=== PATIENT | female | born 1960 | race Caucasian/White ===

== ENCOUNTER 2025-05-22 12:43 | Outpatient (CLI) | payer OTHER, SELFPAY ==
--- OUTSIDE RECORDS SUMMARY | 2025-05-22 12:55 | XMS_ITS | Encounter Summary ---
Author Organization [facility] Address [facility] [place] [address] Care Team Providers Care Automotive Warranty Administrator Name Role Phone Bahman Bowling MD Primary Care Provider [phone] Dayday Evans MD Unavailable [phone] Encounter Details Date Type Department Care Team (Late st Contact Info) Description 03/29/2019 Abstract SFL CONVERSION [address] [place], [place] [id number] , Generic Conversion, Social History Tobacco Use Types Packs/Day Years Used Date Smoking Tobacco: Every Day Cigarettes Smokeless Tobacco: Never Alcohol Use Standard Drinks/Week Comments No 0 (1 standard drink = 0.6 oz pur e alcohol) Comments No Sex and Gender Information Value Date Recorded Sex Assigned at Not on file 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
--- OUTSIDE RECORDS SUMMARY | 2025-05-22 12:55 | XMS_ITS | Clinical Summary ---
Author Organization [facility] Address [address] [place] [address] Care Team Providers Care Traffic Rate Analyst Name Role Phone Bahman Bowling MD Primary Care Provider [phone] Dayday Evans MD Unavailable [phone] Allergies Active Allergy Reactions Criticality Noted Date Comments Codeine Nausea and Vomiting 06/04/2018 Lisinopril Rash,Cough Low 06/04/2018 Losartan Rash,Cough Low 06/04/2018 Medications * This document contains information received from the source organization and may not represent a complete record from that organization. omeprazole 40 MG capsuleIndications:A KELY REFLUX Take 40 mg by mouth daily. Indications : ACID REFLUX Active levothyroxine 112 MCG tablet Take 1 tablet by mouth daily. Active levothyroxine 50 MCG tablet Take 1 tablet by mouth daily. Active levothyroxine 175 MCG tablet Active cyclobenzaprine 5 MG tablet Take 1-2 tablets by mouth 3 (three) times daily as needed. 1 Active buPROPion XL 300 MG 24 hr tablet Take 1 tablet by mouth daily. 1 Active FLUoxetine 40 MG capsule Take 1 capsule by mouth daily. 1 Active hydroCHLOROthiazide 25 MG tablet Take 25 mg by mouth daily. 1 Active Pramipexole Dihydrochloride 0.75 MG Tab Take 0.75 mg by mouth nightly at bedtime. Pt states only takes one tab at bedtime 1 Active levothyroxine 150 MCG tablet Take 150 mcg by mouth every morning. Active Active Problems Problem Noted Date Diagnosed Date Essential (primary) hypertension 06/09/2021 Diastolic dysfunction 06/09/2021 Class 3 severe obesity due t o excess calories without serious comorbidity with body mass index (BMI) of 40.0 to 44.9 in adult 06/09/2021 Shortness of breath 06/09/2021 Wound drainage 06/29/2018 S/P lumbar fusion 06/12/2018 Family History Medical History Relation Comments Heart Disease Father Hypertension Father Open Heart Father Cancer Mother ESOPHAGEAL Stroke Mother Relation Status Comments Father (Age 76) Maternal Grandfather Maternal Grandmother Mother (Age 78) Paternal Grandfather Other Paternal Grandmother Social History Tobacco Use Types Packs/Day Years Used Date Smoking Tobacco: Former Cigarettes Q uit: 06/2019 Smokeless Tobacco: Never Tobacco Cessation:Ready to Q uit: No; Counseling Given: Yes Alcohol Use Standard Drinks/Week Comments No 0 (1 standard drink = 0.6 oz pur e alcohol) Comments No Sex and Gender Information Value Date Recorded Sex Assigned at Not on file 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 Gender Identity Not on file Sexual Orientation Not on file Occupation Industry Job Start Date Job End Date Not on file Not on file Not on file Not on file Last Filed Vital Signs Vital Sign Reading Time Taken Comments Blood Pressure 170/90 06/08/2021 11:26 AM CDT Pulse 80 06/08/2021 11:24 AM CDT Temperature 36.7 C (98.1 F) 07/01/2018 7:42 AM CDT Respiratory Rate 16 06/08/2021 11:24 AM CDT Oxygen Saturation 98% 06/08/2021 11:24 AM CDT Inhaled Oxygen Concentration - - Weight 116.6 kg (257 lb) 06/08/2021 11:24 AM CDT Height 162.6 cm (5' 4) 06/08/2021 11:24 AM CDT Body Mass Index 44.11 06/08/2021 11:24 AM CDT Plan of Treatment Health Maintenance Due Date Last Done Comments Colorectal Cancer Screening Colonoscopy (10 Years) 1962 Annual Physical 1965 Hepatitis C 02/06/1980 DTaP, Tdap and Td Vaccines ( 1 - Tdap) 1981 Pneumococcal Vaccine: 50+ Ye ars (1 of 1 - PCV) 02/06/2012 Zoster Vaccines (1 of 2) 02/06/2012 COVID-19 Vaccine (2 - 2023-2 5 season) 2024 04/21/2021 Mammogram Screening 2026 02/06/2024 RSV Immunization or 60+ Years (1 - 1-dose 75+ series) 2037 Meningococcal B Vaccine Aged Out No l onger eligible based on patient's age to complete this topic Meningococcal Vaccine Aged Out No leon kwan eligible based on patient's age to complete this topic RSV Immunizations Under 20 Months Aged Out No longer eligible based on patient's age to complete this topic Medical Devices Implanted Type Area Turkey Cleaner Device Identifier Shelf Expiration Date Model / Serial / Lot Applicator Evicel 5ml - [id number] Implanted:Qty: 1 on 06/11/2018 by Last Conklin DO at [facility] Sealant Left: Spine Lumbar [employer] - A [employer] 08/21/2019 [id number] / [id number] / [id number] Spacer Implanted:Qty: 1 on 06/11/2018 by Last Conklin DO at [facility] Spacer Left: Spine Lumbar 07/11/2025 [id number] / N/A / [id number] Spacer Implanted:Qty: 1 on 06/11/2018 by Last Conklin DO at [facility] Spacer Left: Spine Lumbar MEDTRONIC INC 07/11/2025 [id number] / / [id number] Spacer Implanted:Qty: 1 on 06/11/2018 by Last Conklin DO at [facility] Spacer Left: Spine Lumbar [employer] INC 07/19/2025 [id number] / N/A / [id number] Tissue Surgiflo 8ml - [id number] Implanted:Qty: 3 on 06/11/2018 by Last Conklin DO at [facility] Left: Spine Lumbar [employer] - A [email or web address] 07/21/2019 [id number] / / [id number] Description:Surgiflo Hemosta tic Matrix Ethicon Christopher Medtronic 100mm - [id number] Implanted:Qty: 1 on 06/11/2018 by Last Conklin DO at [facility] Left: Spine Lumbar [employer] SP[employer] [id number] / / [id number] Screw Set End Cap Medtronic - [id number] Implanted:Qty: 8 on 06/11/2018 by Last Conklin DO at [facility] Left: Spine Lumbar [employer] [id number] / / [id number] Screw Multiaxial Medtronic 5.5 X 45mm - [id number] Implanted:Qty: 1 on 06/11/2018 by Last Conklin DO at [facility] Left: Spine Lumbar [employer] [id number] / / [id number] Screw Multiaxial Medtronic 6.5 X 35mm - [id number] Implanted:Qty: 1 on 06/11/2018 by Last Conklin DO at [facility] Left: Spine Lumbar [employer] [id number] / / [id number] Screw Multiaxial Medtronic 6.5 X 45mm - [id number] Implanted:Qty: 5 on 06/11/2018 by Last Conklin DO at [facility] Left: Spine Lumbar [employer] [id number] / / [id number] Screw Multiaxial Medtronic 6.5 X 40mm - [id number] Implanted:Qty: 1 on 06/11/2018 by Last Conklin DO at [facility] Left: Spine Lumbar [employer] [id number] / / [id number] Graft Bone Christine Putty Dbm 5ml - [id number] Implanted:Qty: 1 on 06/11/2018 by Last Conklin DO at [facility] Left: Spine Lumbar [employer] 02/18/2021 [id number] / [id number] / Graft Bone Allosource Cancellous Crushed Freeze Dried 30ml - [id number] Implanted:Qty: 1 on 06/11/2018 by Last Conklin DO at [facility] Left: Spine Lumbar [employer] 11/22/2022 [id number] / [id number] / [id number] Tissue Duragen 3 X 3 - [id number] Implanted:Qty: 1 on 06/11/2018 by Last Conklin DO at [facility] Left: Spine Lumbar [employer] 01/19/2021 [id number] / [id number] / [id number] Christopher Medtronic 110mm - [id number] Implanted:Qty: 1 on 06/11/2018 by Last Conklin DO at [facility] Left: Spine Lumbar [employer] [id number] / / [id number] Procedures Procedure Name Priority Date/Time Associated Diagnosis Comments MG SCREENING W DEE DEE ALLEGRA DIGI Routine 02/06/2024 3:07 PM CDT Screening mammogram, encounter for from Last 3 Months or Most Recently Relevant to Health Maintenance Results * MG SCREENING W DEE DEE ALLEGRA DIGI (02/06/2024 3:07 PM CDT) Anatomical Region Laterality Modality Breast Bilateral Mammography 02/06/2024 5:47 PM CDT Impressions 02/06/2024 5:53 PM CDT ===== IMPRESSION: ===== 1. Stable mammographic appearance with no new findings to suggest malignancy in either breast. Assessment: ACR BI-RADS 2 - BENIGN FINDING(S) Recommendation: 1:Routine Screening Bilateral Comments: Ordered By: VALENTINA CONN Interpreted By: Aleksandar Ibanez, 02/06/2024 5:47 PM Narrative 02/06/2024 5:53 PM CDT EXAMINATION: Digital bilateral screening mammogram with 3-D tomosynthesis EXAM DATE/TIME: 02/06/2024 3:07 PM REASON FOR EXAM: SCREENING MAMMOGRAM, ENCOUNTER FOR Maternal aunt with breast carcinoma. COMPARISON: 11/19/2017.. 12/12/2018 Technique: Digital screening mammography of both breasts was performed in addition to 3-D Tomosynthesis technique. This study was read with the assistance of a computer-aided detection system. Tissue density: There are scattered areas of fibroglandular density. Findings: Benign calcifications. Similar retroareolar nodularity.. Benign- appearing lymph node within the medial and superior left breast, in its mid aspect.. There is no new focal asymmetry, dominant mass lesion, area of skin thickening, or cluster of suspicious appearing calcifications in either breast to suggest malignancy. us Valentina Conn PA-C MAMMO Final Resul t from Last 3 Months or Most Recently Relevant to Health Maintenance Insurance [facility] Advance Directives * Full Code (Latest Code Status on File) Date Activated Date Inactivated Comments 06/12/2018 12:52 AM 06/17/2018 7:35 PM Care Teams Traffic Rate Analyst Relationship Specialty [place] [address] [place] [address] [place] [address] PCP - General FAMILY PRACTICE 04/22/18 Dayday Evans MD [address] [facility] [address] [place] [address] Canvas Internal Affairs Commander INTERVENTIONAL CARDIOLOGY 05/19/21
--- OUTSIDE RECORDS SUMMARY | 2025-05-22 12:55 | XMS_ITS | Encounter Summary ---
Author Organization [facility] Address [facility] [place] [address] Care Team Providers Care Date Puller Name Role Phone Bahman Bowling MD Primary Care Provider [phone] Dayday Evans MD Unavailable [phone] Encounter Details Date Type Department Care Team (Late st Contact Info) Description 09/20/2018 Abstract [facility] [address] [address] Last Conklin DO Social History Tobacco Use Types Packs/Day Years Used Date Smoking Tobacco: Every Day Cigarettes Smokeless Tobacco: Never Alcohol Use Standard Drinks/Week Comments No 0 (1 standard drink = 0.6 oz pur e alcohol) Comments No Sex and Gender Information Value Date Recorded Sex Assigned at Not on file 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 Gender Identity Not on file Sexual Orientation Not on file documented as of this encounter Plan of Treatment Not on file documented as of this encounter Visit Diagnoses Not on filedocumented in this encounter Care Teams Date Puller Relationship Specialty Start Date End Date Bahman Bowling MD [address] [facility] [place] [address] PCP - General FAMILY PRACTICE 04/22/18 Dayday Evans MD [address] [facility] [address] [place] [address] [place] Office Machine Punch Operator INTERVENTIONAL CARDIOLOGY 05/19/21 documented as of this encounter
[2025-05-22 13:44] LABS: Thyroid Stimulating Hormone Reflex 89.100 uIU/mL (0.465-4.68)
[2025-05-22 14:23] LABS: Free T4 Free Thyroxine Reflex 0.08 ng/dL (0.78-2.19)
== END 2025-05-22 12:44 | disposition home or self-care (01) ==
PROVIDERS: PCP Nurse Practitioner Family; Visit Provider Nurse Practitioner Family
DX: E03.9 Hypothyroidism, unspecified (principal)
CPT/HCPCS: 36415; 84439; 84443

== ENCOUNTER 2025-05-25 13:08 | Outpatient (CLI) | payer OTHER, SELFPAY ==
--- NOTE | ~2025-05-25 | US_ITS ---
Thyroid ultrasound. Clinical History: Dysphagia Findings: Real-time sonography of the thyroid gland was performed. The right lobe measures 4.0 x 1.4 x 1.6 cm. The left lobe measures 2.5 x 1.4 x 1.1 cm. The isthmus is 3 mm in AP diameter. Thyroid parenchyma is heterogeneous, but no discrete thyroid nodule identified. Impression: Heterogeneous thyroid parenchyma without definite, discrete nodule.. Reviewed, dictated and finalized at location . Impression: Heterogeneous thyroid parenchyma without definite, discrete nodule..
--- OUTSIDE RECORDS SUMMARY | 2025-05-25 13:20 | XMS_ITS | Clinical Summary ---
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 Gender Identity Not on file Sexual Orientation [...] this topic Medical Devices Implanted Type Area Wool And Pelt Grader Device Identifier Shelf Expiration Date Model / Serial / Lot Applicator Evicel 5ml - [id number] Implanted:Qty: 1 on 06/11/2018 by Last Conklin DO at [facility] Sealant Left: Spine Lumbar [employer] - A [employer] 08/21/2019 [id number] / [id number] / [id number] Spacer Implanted:Qty: 1 on 06/11/2018 by Last Conklin DO at [facility] Spacer Left: Spine Lumbar 07/11/2025 [id number] / N/A / [id number] Spacer Implanted:Qty: 1 on 06/11/2018 by Last Conklin DO at [facility] Spacer Left: Spine Lumbar [employer] INC 07/11/2025 [id number] / / [id number] Spacer Implanted:Qty: 1 on 06/11/2018 by Last Conklin DO at [facility] Spacer Left: Spine Lumbar [employer] INC 07/19/2025 [id number] / N/A / [id number] Tissue Surgiflo 8ml - [id number] Implanted:Qty: 3 on 06/11/2018 by Last Conklin DO at [facility] Left: Spine Lumbar [employer] - A [employer] 07/21/2019 [id number] / / [id number] Description:Surgiflo Hemosta tic Matrix Ethicon Christopher Medtronic 100mm - [id number] Implanted:Qty: 1 on 06/11/2018 by Last Conklin DO at [facility] Left: Spine Lumbar [employer] SP[employer] [id number] / / [id number] Screw Set End Cap Medtronic - [id number] Implanted:Qty: 8 on 06/11/2018 by Last Conklin DO at [facility] Left: Spine Lumbar [employer] [id number] / / [id number] Screw Multiaxial Medtronic 5.5 X 45mm - [id number] Implanted:Qty: 1 on 06/11/2018 by Last Conklin DO at [facility] Left: Spine Lumbar [employer] SP[employer] [id number] / / [id number] Screw Multiaxial Medtronic 6.5 X 35mm - [id number] Implanted:Qty: 1 on 06/11/2018 by Last Conklin DO at [facility] Left: Spine Lumbar [employer] [id number] / / [id number] Screw Multiaxial Medtronic 6.5 X 45mm - [id number] Implanted:Qty: 5 on 06/11/2018 by Last Conklin DO at [facility] Left: Spine Lumbar [employer] [id number] / / [id number] Screw Multiaxial Medtronic 6.5 X 40mm - [id number] Implanted:Qty: 1 on 06/11/2018 by Last Conklin DO at [facility] Left: Spine Lumbar [employer] [id number] / / [id number] Graft Bone Christine Putty Dbm 5ml - [id number] Implanted:Qty: 1 on 06/11/2018 by Last Conklin DO at [facility] Left: Spine Lumbar [employer] 02/18/2021 [id number] / [id number] / Graft Bone Allosource Cancellous Crushed Freeze Dried 30ml - [id number] Implanted:Qty: 1 on 06/11/2018 by Last Conklin DO at [facility] Left: Spine Lumbar [employer]OURCE 11/22/2022 [id number] / [id number] / [id number] Tissue Duragen 3 X 3 - [id number] Implanted:Qty: 1 on 06/11/2018 by Last Conklin DO at [facility] Left: Spine Lumbar [employer] 01/19/2021 DP-1033 / [id number] / [id number] Christopher Medtronic 110mm - [id number] Implanted:Qty: 1 on 06/11/2018 by Last Conklin DO at [facility] Left: Spine Lumbar [employer] SP[employer] [id number] / / [id number] Procedures Procedure Name Priority Date/Time Associated Diagnosis [...] Most Recently Relevant to Health Maintenance Insurance [facility] Advance Directives * Full Code (Latest Code Status on File) Date Activated Date Inactivated Comments 06/12/2018 12:52 AM 06/17/2018 7:35 PM Care Teams French Tutor Relationship Specialty [place] [address] [place] [address] [place] [address] PCP - General FAMILY PRACTICE 04/22/18 Dayday Evans MD [address] [facility] [address] [place] [address] [employer] Vacuum Metalizer Operator INTERVENTIONAL CARDIOLOGY 05/19/21
--- OUTSIDE RECORDS SUMMARY | 2025-05-25 13:20 | XMS_ITS | Encounter Summary ---
Author Organization [facility] Address [facility] [place] [address] Care Team Providers Care Milk Drier Name Role Phone Bahman Bowling MD Primary Care Provider [phone] Dayday Evans MD Unavailable [phone] Encounter Details Date Type Department Care Team (Late st Contact Info) Description 03/29/2019 Abstract SFL CONVERSION [address], [place] [id number] , Generic Conversion, Social History Tobacco Use Types Packs/Day Years Used Date Smoking Tobacco: Every Day Cigarettes Smokeless Tobacco: Never Alcohol Use Standard Drinks/Week Comments No 0 (1 standard drink = 0.6 oz pur e alcohol) Comments No Sex and Gender Information Value Date Recorded Sex Assigned at Not on file 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 [address] [place] [address] [place] Math Professor INTERVENTIONAL CARDIOLOGY 05/19/21 documented as of this encounter
--- OUTSIDE RECORDS SUMMARY | 2025-05-25 13:20 | XMS_ITS | Encounter Summary ---
Author Organization [facility] Address [facility] [place] [address] Care Team Providers Care Senior Materials Scientist Name Role Phone Bahman Bowling MD Primary Care Provider [phone] Dayday Evans MD Unavailable [phone] Encounter Details Date Type Department Care Team (Late st Contact Info) Description 09/20/2018 Abstract [facility] [address] [address] Last Conklin DO Social History Tobacco Use Types Packs/Day Years Used Date Smoking Tobacco: Every Day Cigarettes Smokeless Tobacco: Never Alcohol Use Standard Drinks/Week Comments No 0 (1 standard drink = 0.6 oz pur e alcohol) Comments No Sex and Gender Information Value Date Recorded Sex Assigned at Not on file 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 [place] [address] PCP - General FAMILY PRACTICE 04/22/18 Dayday Evans MD [address] , [facility] [address] [place] [address] [place] Support Agent INTERVENTIONAL CARDIOLOGY 05/19/21 documented as of this encounter
[2025-05-25 13:34] LABS: Hematocrit 42.9 % (35.0-49.0); Hemoglobin 14.2 g/dL (12.0-15.0); Immature Granulocyte Percent A 0.5 % (0.0-0.0); Lymphocytes Absolute Auto 2.68 K/mm3 (1.10-4.50); Mean Corpuscular HGB Conc 33.1 g/dL (32-36); Mean Corpuscular Hemoglobin 29.5 pg (27.0-31.0); Mean Corpuscular Volume 89.0 fL (78.0-102.0); Nucleated Red Blood Cells Absolute Auto 0.00 K/mm3 (0.00-0.00); Nucleated Red Blood Cells Perc 0.0 % (0-0.0); Platelet Count Result 250 K/mm3 (150-420); Red Blood Count 4.82 M/mm3 (4.20-5.40); White Blood Count 10.1 K/mm3 (4.8-10.8)
[2025-05-25 14:20] LABS: Hemoglobin A1C 7.6 % (<5.7)
[2025-05-25 14:29] LABS: Alanine Aminotransferase 46 U/L (6-35); Albumin Level 4.6 g/dL (3.5-5.1); Alkaline Phosphatase 76 U/L (38-126); Anion Gap 7 mmol/L (4-12); Aspartate Amino Transferase 33 U/L (14-36); Bilirubin,Total 0.7 mg/dL (0.2-1.3); Blood Urea Nitrogen 14 mg/dL (7-17); Calcium 9.6 mg/dL (8.4-10.2); Carbon Dioxide 27 mmol/L (22-30); Chloride 101 mmol/L (98-107); Cholesterol 285 mg/dL (0-200); Estimated Glomerular Filt Rate 57; Glucose 134 mg/dL (65-110); HDL Direct 57 mg/dL; Iron 139 ug/dL (37-170); Osmolality Calculated 282 mOsm/kg (285-295); Potassium 3.9 mmol/L (3.4-5.0); Sodium 135 mmol/L (137-145); Total Protein 6.9 g/dL (6.3-8.2); Triglycerides 190 mg/dL (<150)
[2025-05-25 14:38] LABS: Percent Iron Saturation 33 % (20-50)
[2025-05-25 15:04] LABS: Ferritin 69.60 ng/mL (11.1-264)
[2025-05-28 12:29] LABS: Creatine Kinase 251 U/L (30-135)
[2025-05-28 16:03] LABS: NT Pro B Type Natriuretic Pept 204 pg/mL (19.9-100)
== END 2025-05-25 13:09 | disposition home or self-care (01) ==
LOC: CHSIMG 13:13
PROVIDERS: PCP Nurse Practitioner Family; Visit Provider Nurse Practitioner Family
DX: Z00.00 Encounter for general adult medical examination without abnormal findings (principal); R79.89 Other specified abnormal findings of blood chemistry; R13.10 Dysphagia, unspecified; R49.0 Dysphonia; E03.9 Hypothyroidism, unspecified; E78.5 Hyperlipidemia, unspecified; R74.8 Abnormal levels of other serum enzymes
CPT/HCPCS: 36415; 76536; 80053; 80061; 82306; 82550; 82553; 82728; 83036; 83540; 83550; 83880; 85025

== ENCOUNTER 2025-05-29 09:49 | Outpatient (CLI) | payer OTHER, SELFPAY ==
--- OUTSIDE RECORDS SUMMARY | 2025-05-29 09:55 | XMS_ITS | Encounter Summary ---
Author Organization [facility] Address [facility] [place] [address] Care Team Providers Care Engineering Equipment Operator Name Role Phone Bahman Bowling MD Primary Care Provider [phone] Dayday Evans MD Unavailable [phone] Encounter Details Date Type Department Care Team (Late st Contact Info) Description 03/29/2019 Abstract SFL CONVERSION [address], [place] [id number] , Generic Conversion, Social History Tobacco Use Types Packs/Day Years Used Date Smoking Tobacco: Every Day Cigarettes Smokeless Tobacco: Never Alcohol Use Standard Drinks/Week Comments No 0 (1 standard drink = 0.6 oz pur e alcohol) Comments No Sex and Gender Information Value Date Recorded Sex Assigned at Not on file Legal Sex Female 10:23 PM CUPOLA CHARGER INSULATION Gender Identity Not on file Sexual Orientation Not on file documented as of this encounter Plan of Treatment Not on file documented as of this encounter Visit Diagnoses Not on filedocumented in this encounter Care Teams Engineering Equipment Operator Relationship Specialty Start Date End Date Bahman Bowling MD [address] [place] [address] PCP - General FAMILY PRACTICE 04/22/18 Dayday Evans MD [address] [facility] [address] [place] [address] [place] Modern Greek Studies Professor INTERVENTIONAL CARDIOLOGY 05/19/21 documented as of this encounter
--- OUTSIDE RECORDS SUMMARY | 2025-05-29 09:55 | XMS_ITS | Encounter Summary ---
Author Organization [facility] Address [facility] [place] [address] Care Team Providers Care Computer Drafter Name Role Phone Bahman Bowling MD Primary Care Provider [phone] Dayday Evans MD Unavailable [phone] Encounter Details Date Type Department Care Team (Late st Contact Info) Description 09/20/2018 Abstract [facility] [address] [address] Last Conklin DO Social History Tobacco Use Types Packs/Day Years Used Date Smoking Tobacco: Every Day Cigarettes Smokeless Tobacco: Never Alcohol Use Standard Drinks/Week Comments No 0 (1 standard drink = 0.6 oz pur e alcohol) Comments No Sex and Gender Information Value Date Recorded Sex Assigned at Not on file 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
--- OUTSIDE RECORDS SUMMARY | 2025-05-29 09:55 | XMS_ITS | Clinical Summary ---
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 Gender Identity Not on file Sexual Orientation [...] this topic Medical Devices Implanted Type Area Electrical Electronics Engineer Device Identifier Shelf Expiration Date Model / Serial / Lot Applicator Evicel 5ml - [id number] Implanted:Qty: 1 on 06/11/2018 by Last Conklin DO at [facility] Sealant Left: Spine Lumbar [employer] - A Core Stix 08/21/2019 [id number] / [id number] / [id number] Spacer Implanted:Qty: 1 on 06/11/2018 by Last Conklin DO at [facility] Spacer Left: Spine Lumbar 07/11/2025 [id number] / N/A / [id number] Spacer Implanted:Qty: 1 on 06/11/2018 by Last Conklin DO at [facility] Spacer Left: Spine Lumbar [employer] 07/11/2025 [id number] / / [id number] Spacer Implanted:Qty: 1 on 06/11/2018 by Last Conklin DO at [facility] Spacer Left: Spine Lumbar [employer] 07/19/2025 [id number] / N/A / [id number] Tissue Surgiflo 8ml - [id number] Implanted:Qty: 3 on 06/11/2018 by Last Conklin DO at [facility] Left: Spine Lumbar [employer] - A [employer] 07/21/2019 [id number] / / [id number] Description:Surgiflo Hemosta tic Matrix Ethicon Christopher Medtronic 100mm - [id number] Implanted:Qty: 1 on 06/11/2018 by Last Conklin DO at [facility] Left: Spine Lumbar [employer] [id number] / / [id number] Screw Set End Cap Medtronic - [id number] Implanted:Qty: 8 on 06/11/2018 by Last Conklin DO at [facility] Left: Spine Lumbar [employer] [id number] / / [id number] Screw Multiaxial Medtronic 5.5 X 45mm - [id number] Implanted:Qty: 1 on 06/11/2018 by Last Conklin DO at [facility] Left: Spine Lumbar [employer] [id number] / / [id number] Screw Multiaxial Medtronic 6.5 X 35mm - [id number] Implanted:Qty: 1 on 06/11/2018 by Last Conklin DO at [facility] Left: Spine Lumbar [employer] [id number] / / [id number] Screw Multiaxial Medtronic 6.5 X 45mm - [id number] Implanted:Qty: 5 on 06/11/2018 by Last Conklin DO at [facility] Left: Spine Lumbar [employer] [id number] / / [id number] Screw Multiaxial Medtronic 6.5 X 40mm - [id number] Implanted:Qty: 1 on 06/11/2018 by Last Conklin DO at [facility] Left: Spine Lumbar [employer] [id number] / / [id number] Graft Bone Christine Putty Dbm 5ml - [id number] Implanted:Qty: 1 on 06/11/2018 by Last Conklin DO at [facility] Left: Spine Lumbar [employer] 02/18/2021 [id number] / [id number] / Graft Bone Allosource Cancellous Crushed Freeze Dried 30ml - [id number] Implanted:Qty: 1 on 06/11/2018 by Last Conklin DO at [facility] Left: Spine Lumbar [employer] 11/22/2022 [id number] / [id number] / [id number] Tissue Duragen 3 X 3 - [id number] Implanted:Qty: 1 on 06/11/2018 by Last Conklin DO at [facility] Left: Spine Lumbar [employer] 01/19/2021 DP-1033 / [id number] / [id number] Christopher Medtronic 110mm - [id number] Implanted:Qty: 1 on 06/11/2018 by Last Conklin DO at [facility] Left: Spine Lumbar [employer] [id number] / / [id number] Procedures Procedure Name Priority Date/Time Associated Diagnosis [...] Most Recently Relevant to Health Maintenance Insurance [facility] Advance Directives * Full Code (Latest Code Status on File) Date Activated Date Inactivated Comments 06/12/2018 12:52 AM 06/17/2018 7:35 PM Care Teams Final Inspector Shuttle Relationship Specialty [place] [address] [place] [address] [place] [address] PCP - General FAMILY PRACTICE 04/22/18 Dayday Evans MD [address] [facility] [address] [place] [address] Antlers Feed Crusher Operator INTERVENTIONAL CARDIOLOGY 05/19/21
--- NOTE | 2025-05-29 10:01 | ECG_ITS ---
Test Date: 2025-05-29 10:09:15 Measurements Intervals [place] Rate: 68 P: 65 IA: 239 QRS: 20 QRSD: 99 T: 50 QT: 394 QTc: 420 Interpretive Statements SINUS RHYTHM WITH FIRST DEGREE AV BLOCK INCOMPLETE RIGHT BUNDLE BRANCH BLOCK BORDERLINE ECG No previous ECG available for comparison Electronically Signed On 05-29-2025 10:24:25 CDT by Helio Huber D.O.
[2025-05-29 10:27] LABS: Troponin I < 0.012 ng/mL (0.000-0.034)
[2025-05-29 15:51] LABS: Thyroid Stimulating Hormone Reflex 56.400 uIU/mL (0.465-4.68)
[2025-05-29 17:08] LABS: Free T4 Free Thyroxine Reflex 0.92 ng/dL (0.78-2.19)
== END 2025-05-29 09:50 | disposition home or self-care (01) ==
PROVIDERS: PCP Nurse Practitioner Family; Visit Provider Nurse Practitioner Family
DX: R93.89 Abnormal findings on diagnostic imaging of other specified body structures (principal); E03.9 Hypothyroidism, unspecified; R74.8 Abnormal levels of other serum enzymes
CPT/HCPCS: 36415; 84439; 84443; 84484; 86376; 93005

== ENCOUNTER 2025-10-09 13:02 | Outpatient (CLI) | payer OTHER, SELFPAY ==
--- OUTSIDE RECORDS SUMMARY | 2025-10-09 13:07 | XMS_ITS | Encounter Summary ---
Author Organization [facility] - [facility] Address [facility] [place] [address] Care Team Providers Care Project Manager Name Role Phone Bahman Bowling MD Primary Care Provider [phone] Dayday Evans MD Unavailable [phone] Encounter Details Date Type Department Care Team (Late st Contact Info) Description 03/29/2019 Abstract [facility] [address] [place], [place] [id number] , Generic Conversion, Social History Tobacco Use Types Packs/Day Years Used Date Smoking Tobacco: Every Day Cigarettes Smokeless Tobacco: Never Alcohol Use Standard Drinks/Week Comments No 0 (1 standard drink = 0.6 oz pur e alcohol) Comments No Sex and Gender Information Value Date Recorded Sex Assigned at Not on file 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
--- OUTSIDE RECORDS SUMMARY | 2025-10-09 13:07 | XMS_ITS | Encounter Summary ---
Author Organization [facility] Address [facility] [place] [address] Care Team Providers Care Piping Designer Name Role Phone Bahman Bowling MD Primary Care Provider [phone] Dayday Evans MD Unavailable [phone] Encounter Details Date Type Department Care Team (Late st Contact Info) Description 09/20/2018 Abstract [facility] [address] [address] Last Conklin DO Social History Tobacco Use Types Packs/Day Years Used Date Smoking Tobacco: Every Day Cigarettes Smokeless Tobacco: Never Alcohol Use Standard Drinks/Week Comments No 0 (1 standard drink = 0.6 oz pur e alcohol) Comments No Sex and Gender Information Value Date Recorded Sex Assigned at Not on file 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 Gender Identity Not on file Sexual Orientation Not on file documented as of this encounter Plan of Treatment Not on file documented as of this encounter Visit Diagnoses Not on filedocumented in this encounter Care Teams Piping Designer Relationship Specialty Start Date End Date Bahman Bowling MD [address] [facility] [place] [phone] PCP - General FAMILY PRACTICE 04/22/18 Dayday Evans MD [address] [facility] [address] [place] [address] [place] Instrumentation Instructor INTERVENTIONAL CARDIOLOGY 05/19/21 documented as of this encounter
--- OUTSIDE RECORDS SUMMARY | 2025-10-09 13:07 | XMS_ITS | Clinical Summary ---
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 Gender Identity Not on file Sexual Orientation [...] of 2) 02/06/2012 COVID-19 Vaccine (2 - 2024-2 6 season) 2025 04/21/2021 Influenza Adult (#1) 2025 Mammogram Screening 2026 02/06/2024 RSV Immunization or 60+ Years (1 - 1-dose 75+ series) 2037 Hepatitis A Vaccines Aged Out No long er eligible based on patient's age to complete this topic Meningococcal B Vaccine Aged Out No l onger eligible based on patient's age to complete this topic Meningococcal Vaccine Aged Out No leon kwan eligible based on patient's age to complete this topic RSV Immunizations Under 20 Months Aged Out No longer eligible based on patient's age to complete this topic Medical Devices Implanted Type Area Compliance Auditor Device Identifier Shelf Expiration Date Model / Serial / Lot Applicator Evicel 5ml - [id number] Implanted:Qty: 1 on 06/11/2018 by Last Conklin DO at [facility] Sealant Left: Spine Lumbar [employer] - A Space Monkey 08/21/2019 [id number] / [id number] / [id number] Spacer Implanted:Qty: 1 on 06/11/2018 by Last Conklin DO at [facility] Spacer Left: Spine Lumbar 07/11/2025 [id number] / N/A / [id number] Spacer Implanted:Qty: 1 on 06/11/2018 by Last Conklin DO at [facility] Spacer Left: Spine Lumbar [employer] 07/11/2025 [id number] / / [id number] Spacer Implanted:Qty: 1 on 06/11/2018 by Last Conklin DO at [facility] Spacer Left: Spine Lumbar [employer] 07/19/2025 [id number] / N/A / [id number] Tissue Surgiflo 8ml - [id number] Implanted:Qty: 3 on 06/11/2018 by Last Conklin DO at [facility] Left: Spine Lumbar [employer] - A [employer] [place] 07/21/2019 2991 / / [id number] Description:Surgiflo Hemosta tic Matrix Ethicon Christopher Medtronic 100mm - [id number] Implanted:Qty: 1 on 06/11/2018 by Last Conklin DO at [facility] Left: Spine Lumbar [employer] [id number] / / [id number] Screw Set End Cap Medtronic - [id number] Implanted:Qty: 8 on 06/11/2018 by Last Conklin DO at [facility] Left: Spine Lumbar [employer] [id number] / / [id number] Screw Multiaxial Medtronic 5.5 X 45mm - [id number] Implanted:Qty: 1 on 06/11/2018 by Last Conklin DO at [facility] Left: Spine Lumbar [employer] [id number] / / [id number] Screw Multiaxial Medtronic 6.5 X 35mm - [id number] Implanted:Qty: 1 on 06/11/2018 by Last Conklin DO at [facility] Left: Spine Lumbar [employer] [id number] / / [id number] Screw Multiaxial Medtronic 6.5 X 45mm - [id number] Implanted:Qty: 5 on 06/11/2018 by Last Conklin DO at [facility] Left: Spine Lumbar [employer] [id number] / / [id number] Screw Multiaxial Medtronic 6.5 X 40mm - [id number] Implanted:Qty: 1 on 06/11/2018 by Last Conklin DO at [facility] Left: Spine Lumbar [employer] [id number] / / [id number] Graft Bone Christine Putty Dbm 5ml - [id number] Implanted:Qty: 1 on 06/11/2018 by Last Conklin DO at [facility] Left: Spine Lumbar [employer] 02/18/2021 [id number] / [id number] / Graft Bone [employer]osource Cancellous Crushed Freeze Dried 30ml - [id number] Implanted:Qty: 1 on 06/11/2018 by Last Conklin DO at [facility] Left: Spine Lumbar [employer] 11/22/2022 [id number] / [id number] / [id number] Tissue Duragen 3 X 3 - [id number] Implanted:Qty: 1 on 06/11/2018 by Last Conklin DO at [facility] Left: Spine Lumbar [employer] 01/19/2021 DP-1033 / [id number] / [id number] Christopher Medtronic 110mm - [id number] Implanted:Qty: 1 on 06/11/2018 by Last Conklin DO at [facility] Left: Spine Lumbar [employer] [id number] / / [id number] Procedures Procedure Name Priority Date/Time Associated Diagnosis [...] Recently Relevant to Health Maintenance Insurance [facility] [employer] Advance Directives * Full Code (Latest Code Status on File) Date Activated Date Inactivated Comments 06/12/2018 12:52 AM 06/17/2018 7:35 PM Care Teams Card Hanger Relationship Specialty Start Date End Date Bahman Bowling MD [address] [facility] [place] [address] PCP - General FAMILY PRACTICE 04/22/18 Dayday Evans MD [address] [facility] [address] [place] [address] [place] Dental Prosthetist INTERVENTIONAL CARDIOLOGY 05/19/21
[2025-10-09 13:16] LABS: Add Urine Microscopic? YES; Appearance Urine Clear (Clear); Glucose Urine UA 3+ (Negative); Leukocyte Esterase Ur Negative LEU/UL (Negative); Nitrate Urine Negative (Negative); Specific Grav Ur 1.015 (1.010-1.020)
== END 2025-10-09 13:03 | disposition home or self-care (01) ==
PROVIDERS: PCP Family Medicine; Visit Provider Family Medicine
DX: R30.0 Dysuria (principal)
CPT/HCPCS: 81001